=== PATIENT | male | born 1975 | race Hispanic/Latino ===

== ENCOUNTER 2024-03-07 06:18 | Day surgery (SDC) | payer BC ==
[~2024-03-07] VITALS: Ht 175.3 cm; Wt 89.4 kg
[2024-03-07] VITALS (9 sets, daily range): BP systolic 108–147; BP diastolic 66–87; PULSE 70–82; RESP 15–17
[2024-03-07] MEDS: 0.9%NACL 1000ML 1,000 ML IV ONE (07:31)
[2024-03-07] MEDS ORDERED: PROPOFOL 10 MG/ML 20ML VIAL IV ONE ×2 (08:59→09:05)
== END 2024-03-07 10:14 | disposition home or self-care (01) ==
LOC: DAH 06:18 → ENDO 06:18
PROVIDERS: ATTEND Internal Medicine Gastroenterology
DX: Z12.11 Encounter for screening for malignant neoplasm of colon (principal); Z72.89 Other problems related to lifestyle
CPT/HCPCS: 45378; J7030 ×2; J2704 ×2; A4620; A4215; A4223; A7002; A4222; A4221; A4663; A4606; G0121; J3490